=== PATIENT | female | born 1940 | race Caucasian/White ===

== ENCOUNTER 2018-01-20 17:38 | Emergency (ER) | payer MEDICARE ==
[~2018-01-20] VITALS: Ht 163.8 cm; Wt 66.7 kg
[2018-01-20 17:44] VITALS: BP 139/62; PULSE 88; RESP 16; TEMP 98.6; O2SAT 96
--- NOTE | 2018-01-20 18:12 | PD ---
HPI Chief Complaint: ENT Complaint Time Seen by Provider: 18:09 Travel History International Travel<30 days: No Contact w/Intl Traveler<30days: No Traveled to known affect area: No History of Present Illness HPI 77-year-old female with PMH of breast CA, last chemotherapy 1 week ago presents to the ED for evaluation of 2 day history of sore throat, sinus congestion, clear rhinorrhea, nonproductive cough. Also complains of right-sided ear stuffiness. Patient denies fever, chills, shortness of breath, chest pain, palpitations, drainage from the ear. She is visiting from [place]. She states that she was cleared by her oncologist for the visit. She denies sick contacts. She takes a daily Claritin for environmental allergies. She will return to [place] in a few weeks. PFSH Past Medical History Cancer: Yes (LEFT BREAST) Cardiovascular Problems: Yes (htn on meds) High Cholesterol: Yes Chemotherapy: Yes (LAST DOSE 1 WEEK AGO) GERD: Yes Hypertension: Yes Tetanus Vaccination: < 5 Years Influenza Vaccination: Yes ?: Not Past Surgical History Abdominal Surgery: Yes (PARTIAL NEPHECTOMY) Hysterectomy: Yes Thoracic Surgery: Yes (L/R BREAST LUMPECTOMY) Tonsillectomy: Yes Other Surgery: Yes (CATERACT) Social History Alcohol Use: Yes (SOCIAL) Tobacco Use: No Substance Use: No Allergies-Medications (Allergen,Severity, Reaction): Coded Allergies: No Known Allergies (Unverified , 01/20/18) Reported Meds & Prescriptions Reported Meds & Active Scripts Active Reported Ambien (Zolpidem Tartrate) 5 Mg Tab 5 Mg PO HS PRN Propranolol (Propranolol HCl) 80 Mg Tab 80 Mg PO DAILY Prochlorperazine Maleate 10 Mg Tab 10 Mg PO Q8HR PRN Pravastatin 80 Mg Tab 80 Mg PO DAILY Pantoprazole (Pantoprazole Sodium) 40 Mg Tab 40 Mg PO DAILY Zofran Odt (Ondansetron Odt) 8 Mg Tab 8 Mg SL Q8H PRN Naproxen 375 Mg Tab 375 Mg PO BID Singulair (Montelukast Sodium) 10 Mg Tab 10 Mg PO HS Losartan-Hydrochlorothiazide 50-12.5 Mg Tab 1 Tab PO DAILY Lorazepam 0.5 Mg Tab 0.5 Mg PO DAILY PRN Hydrocodone-Acetaminophen 10-325 mg Tab 1 Tab PO Q6H PRN Hydrochlorothiazide 25 Mg Tab 25 Mg PO DAILY Fluticasone Nasal Thrall 50 Mcg/Act Naspr 50 Mcg EACH NARE BID 50 mcg/spray Dexamethasone 4 Mg Tab 8 Mg PO BID Aspirin DR (Aspirin) 81 Mg Tabdr 81 Mg PO DAILY Advair Hfa 12 GM Inh (Fluticasone-Salmeterol 12 GM Inh) 230-21 Mcg/Act Aer 2 Puff INH BID Review of Systems Except as stated in HPI: all other systems reviewed are Neg Physical Exam Narrative GENERAL: Well-nourished, well-developed pleasant white female no acute distress. SKIN: Warm and dry. HEAD: Normocephalic. Atraumatic. EYES: No scleral icterus. No injection or drainage. PERRLA. EOMI. ENT: Pearly mckeon tympanic membranes bilaterally. Serous effusion right side. Nasal mucosa is moist. Oropharynx with mild posterior erythema. No edema or exudate. Uvula midline. Airway patent. NECK: Supple, trachea midline. No JVD or lymphadenopathy. CARDIOVASCULAR: Regular rate and rhythm without murmurs, gallops, or rubs. RESPIRATORY: Breath sounds clear and equal bilaterally. No accessory muscle use. GASTROINTESTINAL: Abdomen soft, non-tender, nondistended. + Bowel sounds MUSCULOSKELETAL: No cyanosis, or edema. Walks with a normal gait. BACK: Nontender without obvious deformity. No CVA tenderness. Data Data Last Documented VS Vital Signs Date Time Temp Pulse Resp B/P (MAP) Pulse Ox O2 Delivery O2 Flow Rate FiO2 01/20/18 17:44 98.6 88 16 139/62 (87) 96 Orders Orders Group A Rapid Strep Screen (01/20/18 18:09) Chest, Pa & Lat (01/20/18 ) Strep Culture (Group A) (01/20/18 18:15) Ed Discharge Order (01/20/18 19:24) MDM Medical Decision Making Medical Screen Exam Complete: Yes Emergency Medical Condition: Yes Differential Diagnosis Viral syndrome versus pharyngitis versus strep pharyngitis versus otitis media versus environmental allergies versus upper airway cough syndrome versus other Narrative Course 77-year-old female with PMH of breast CA, last chemotherapy 1 week ago presents to the ED for evaluation of 2 day history of sore throat, sinus congestion, clear rhinorrhea, nonproductive cough. Also complains of right-sided ear stuffiness. Patient reports no fever, shortness of breath. Patient is afebrile on presentation. Physical exam reveals a serous effusion behind the right ear, mild posterior oropharyngeal erythema. Rapid flu swab negative. Chest x-ray negative. This is upper airway cough syndrome. Patient's instructed to take Claritin-D daily, use OTC medications for pain, return for worsening symptoms. She indicated understanding the instructions and is agreeable to care plan. The patient is stable and discharged home. Diagnosis Primary Impression: Post-nasal drip Additional Impression: Right ear pain Referrals: Primary Care Physician Additional Instructions: Rest, hydrate. Hold Claritin and switch to Claritin D. This will help to dry up nasal secretions. Drying the nasal secretions will help stop the postnasal drip and improve the sore throat pain. Warm salt water gargles may also help to improve your pain. Take Tylenol or ibuprofen as described on the label, as needed for pain. Follow up with the primary care provider. Return to the ED for worsening symptoms (fever!) Or any urgent or emergent medical condition. Med/Other Pt SpecificInfo: Prescription(s) given Disposition: 01 DISCHARGE HOME Condition: Stable Jennifer Lange Jan 20, 2018 18:12
[2018-01-20] MEDS ORDERED: PRAV80TA2 PO (18:13)
[2018-01-20] MEDS ORDERED: PROC10TA PO (18:13)
[2018-01-20] MEDS ORDERED: FLUT50SP EACH NARE (18:13)
[2018-01-20] MEDS ORDERED: PANT40TA3 PO (18:13)
[2018-01-20] MEDS ORDERED: AMBI5TAB PO (18:13)
[2018-01-20] MEDS ORDERED: ADVA230A INH (18:13)
[2018-01-20] MEDS ORDERED: ECASA81 PO (18:13)
[2018-01-20] MEDS ORDERED: ZOFR8TAB4 SL (18:13)
[2018-01-20] MEDS ORDERED: PROP80TA PO (18:13)
[2018-01-20] MEDS ORDERED: LORA0.5T PO (18:13)
[2018-01-20] MEDS ORDERED: MONT10TA2 PO (18:13)
[2018-01-20] MEDS ORDERED: HYDR-3583 PO (18:13)
[2018-01-20] MEDS ORDERED: LOSA50TA2 PO (18:13)
[2018-01-20] MEDS ORDERED: HYDR25TA5 PO (18:13)
[2018-01-20] MEDS ORDERED: NAPR-855 PO (18:13)
[2018-01-20] MEDS ORDERED: DEXA4TAB PO (18:13)
--- NOTE | 2018-01-20 18:58 | RADRPT ---
EXAM DATE: 01/20/2018 6:45 PM EDT AGE/SEX: 77 years / Female INDICATIONS: Cough, short of breath, chemo patient CLINICAL DATA: This is the patient's initial encounter. Patient reports that signs and symptoms have been present for 1 day and indicates a pain score of 0/10. MEDICAL/SURGICAL HISTORY: Carcinoma, breast. . Lumpectomy COMPARISON: No prior exams available for comparison. FINDINGS: PA and lateral views of the chest demonstrate the lungs to be symmetrically aerated without evidence of mass, infiltrate or effusion. The cardiomediastinal contours are unremarkable. Osseous structures are intact. CONCLUSION: No focal consolidation or effusion. Heart size within normal limits. Surgical clips right axillary re gion. Electronically signed by: Stanley Davis MD 01/20/2018 6:57 PM EDT
== END 2018-01-20 19:33 | disposition home or self-care (01) ==
LOC: PHEFT 17:38
DX: R09.82 Postnasal drip (principal); H92.01 Otalgia, right ear; C50.912 Malignant neoplasm of unspecified site of left female breast; I10 Essential (primary) hypertension; E78.00 Pure hypercholesterolemia, unspecified; K21.9 Gastro-esophageal reflux disease without esophagitis
CPT/HCPCS: 71046; 87081; 87880; 99284